=== PATIENT | male | born 1950 | race Caucasian/White ===

== ENCOUNTER 2021-10-26 07:10 | Day surgery (SDC) | payer MEDICARE ==
[~2021-10-26] VITALS: Ht 190.5 cm; Wt 147.0 kg
--- NOTE | ~2021-10-26 | OR ---
[facility] [address], [place] [address] Draft DATE OF OPERATION: 10/26/2021 SURGEON: Sandrita Ingram MD PREOPERATIVE DIAGNOSIS: Severe degenerative joint disease, right knee POSTOPERATIVE DIAGNOSIS: Severe degenerative joint disease, right knee. PROCEDURE PERFORMED: Right total knee arthroplasty with Magno. PARK MAINTAINER: Ellen Perdomo PA-C. Ellen was present and critical for all portions of procedure. ANESTHESIA: Spinal. BLOOD LOSS: 200 mL. IMPLANTS: [place] Triathlon size 7 with a 9 mm polyethylene and 35 mm patella. BRIEF HISTORY: Maryanne is a 71-year-old gentleman with progressive worsening of osteoarthritis. Risks and benefits of operative treatment were discussed with him after nonoperative treatment failed. He agreed to proceed. DESCRIPTION OF PROCEDURE: Once consent was obtained, he was taken to the operating room. After adequate anesthesia, he was placed on operating table. All downside pressure points well padded. The right leg was prepped and draped in a standard sterile fashion. No tourniquet was placed. The leg was approached through a standard midline incision anteriorly. This was carried through skin and subcutaneous tissue and subcutaneous flaps were developed mediolaterally. Mid vastus approach was undertaken and the arthrotomy was performed. The MCL was elevated with a sleeve around the posteromedial corner. The infrapatellar fat pad was excised and the anterior horns of menisci were transected as was the ACL. PATIENT NAME: MARYANNE MEJIA OPERATIVE REPORT DATE OF : 46 REPORT #: [id number] PHYSICIAN: SANDRITA INGRAM MD PCP: HEBER BRONSON MD REPORT IS CONFIDENTIAL AND NOT TO BE RELEASED WITHOUT AUTHORIZATION [facility] [address], [place] [address] Draft The knee was then flexed. The patella was mobilized laterally. Once we got there, we were able to place the checkpoints, the medial femoral condyle and proximal tibia. The computer rays placed the medial femoral condyle and in the tibia percutaneously. The leg was then registered with the computer as were the fine anatomic points of the knee. The Laya valgus testing was then undertaken and slight adjustments were made at the prosthesis alignment. Once an even balance was obtained the robot was brought in and the four straight cuts were made with care taken to protect the patellar tendon and MCL. The blade was then switched to the angle blade and the two angled cuts were made. The bony surfaces were removed along with any remaining osteophytes. The osteophytes in the posterior aspect of the femur removed and the trials were positioned. Knee was taken through range of motion, found to be quite stable and went from 0 to 130 degrees of flexion. The patella was cut sized and drilled for a 35 mm patella. The knee was flexed and the distal femur was then drilled. The proximal tibia was finished using the keel punch and the trials removed. His bone was fairly soft so we did elect to go with a hybrid prosthesis. The bone was pulse lavaged and packed with dry Ray-Shamika. Cement was mixed and reached proper consistency, it was placed on the tibia and tibial implant. The tibia was impacted into position until it was well seated and all excess cement was removed. The polyethylene was snapped into position. The femur was impacted. Knee was then extended and nicely loaded. The patella was then cemented and clamped. All excess cement was removed. The cement was allowed to harden, once hardened sufficiently clamp was removed. Knee was taken through range of motion, any remaining overflow was removed. The periarticular soft tissues were injected with 100 mL ropivacaine Toradol mixture. The On-Q pain pump was percutaneously placed into the adductor canal. We did irrigate with 3 L normal saline with an IrriSept soak in the middle. The arthrotomy was then closed using #2 Stratafix, subcutaneous tissue with #0 Stratafix, and skin with 3-0 Stratafix. The wound was then dressed with Steri-Strips and Aquacel 7 dressing. The wound was dressed with an ABD and Doni wrap. He was awakened, taken to the recovery room in satisfactory condition. All sponge, needle, and instrument counts were correct. Sandrita Ingram MD BA/MODL /[id number] Copies: PATIENT NAME: MARYANNE MEJIA OPERATIVE REPORT DATE OF : 46 REPORT #: [id number] PHYSICIAN: SANDRITA INGRAM MD PCP: HEBER BRONSON MD REPORT IS CONFIDENTIAL AND NOT TO BE RELEASED WITHOUT AUTHORIZATION [address] [address] Draft ~ PATIENT NAME: MARYANNE MEJIA OPERATIVE REPORT DATE OF : 46 REPORT #: [id number] PHYSICIAN: SANDRITA INGRAM MD PCP: HEBER BRONSON MD REPORT IS CONFIDENTIAL AND NOT TO BE RELEASED WITHOUT AUTHORIZATION
[~2021-10-26 07:10] MED LIST: MULTI VITAMIN1 EACH PO; NASAL DECONGEST30 M2 PO; NORVASC10 MG PO; VIT C-ROSE HIP500 MG PO
[2021-10-26] MEDS ORDERED: TAMSULOSIN HCL0.4 MG PO (10:55)
[2021-10-26] MEDS ORDERED: XARELTO10 MG PO (10:55)
[2021-10-26] MEDS ORDERED: OXYCODONE HCL5 MG PO (10:55)
[2021-10-26] MEDS ORDERED: ACETAMINOPHEN500 MG PO (10:55)
[2021-10-26] MEDS ORDERED: SENNA LAX8.6 MG PO (10:56)
== END 2021-10-26 15:25 | disposition home or self-care (01) ==
LOC: DS 07:10
PROVIDERS: ATTEND Specialist
PROC: 8E0YXBZ Computer Assisted Procedure of Lower Extremity (ICD-10-PCS; 2021-10-26)
PROC: 0SRC0J9 Replacement of Right Knee Joint with Synthetic Substitute, Cemented, Open Approach (ICD-10-PCS; principal; 2021-10-26 08:45)
DX: M17.11 Unilateral primary osteoarthritis, right knee (principal); G89.18 Other acute postprocedural pain; G47.30 Sleep apnea, unspecified; Z98.84 Bariatric surgery status; M43.06 Spondylolysis, lumbar region; I10 Essential (primary) hypertension; E11.9 Type 2 diabetes mellitus without complications
CPT/HCPCS: 01402; 64447; 64450; 76942; 97161; A9270; C1713; C1776; J0690; J1100; J1885; J2001; J2250; J2704; J2795; J7121

== ENCOUNTER 2021-11-06 15:04 | Emergency (ER) | payer MEDICARE ==
[~2021-11-06] VITALS: Ht 190.5 cm; Wt 145.2 kg
[~2021-11-06 15:04] MED LIST changes: +ACETAMINOPHEN500 MG PO; +OXYCODONE HCL5 MG PO; +SENNA LAX8.6 MG PO; +TAMSULOSIN HCL0.4 MG PO; +XARELTO10 MG PO
== END 2021-11-06 16:50 | disposition home or self-care (01) ==
LOC: ED 15:04
DX: M96.89 Other intraoperative and postprocedural complications and disorders of the musculoskeletal system (principal); M79.89 Other specified soft tissue disorders; E66.9 Obesity, unspecified; I10 Essential (primary) hypertension; Z79.899 Other long term (current) drug therapy
CPT/HCPCS: 93971; 99283-25

== ENCOUNTER 2023-04-25 05:35 | Day surgery (SDC) | payer MEDICARE | END 2023-04-25 15:10 | disposition home or self-care (01) | LOC: DS 05:35 | PROC: 0SRB01Z Replacement of Left Hip Joint with Metal Synthetic Substitute, Open Approach (ICD-10-PCS; principal; 2023-04-25) | PROC: 8E0YXBZ Computer Assisted Procedure of Lower Extremity (ICD-10-PCS; 2023-04-25) | DX: M16.12 Unilateral primary osteoarthritis, left hip (principal); I10 Essential (primary) hypertension; E11.9 Type 2 diabetes mellitus without complications ==

== ENCOUNTER 2023-10-13 18:30 | Emergency (ER) | payer MEDICARE, OTHER ==
[~2023-10-13] VITALS: Ht 190.5 cm; Wt 159.7 kg
[~2023-10-13 18:30] MED LIST changes: +CEFUROXIME250 MG PO; +CELECOXIB200 MG PO; +GABAPENTIN300 MG PO; +IRON325 M1 PO
--- OUTSIDE RECORDS SUMMARY | 2023-10-13 18:32 | XMS ---
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 Ana has no Care Guidelines for this patient. [facility]12 MO.) [facility] NOTE: Visits indicate total known visits. 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
[2023-10-13] MEDS ORDERED: CEPHALEXIN500 MG PO (19:48)
[2023-10-13 20:31] LABS: BASOPHILS 0.3 % (0-2); EOSINOPHILS 0.2 % (0-6); HEMATOCRIT 40.8 % (35.0-50.0); HEMOGLOBIN 14.1 g/dL (12.0-18.0); LYMPHOCYTES 9.8 % (24-44); MCH 30.8 (27-36); MCHC 34.5 g/dl (30-36); MCV 89.1 fl (81-99); MONOCYTES 8.8 % (0-12); NEUTROPHILS 80.9 % (39-80); PLATELET COUNT 161 K/uL (140-440); RBC 4.58 M/ul (4.3-5.7)
[2023-10-13 20:39] LABS: ALBUMIN 2.6 g/dL (3.4-5.0); ALBUMIN/GLOBULIN RATIO 0.68 (1.1-2.4); ANION GAP 13.2 (7-21); BILIRUBIN, TOTAL 1.5 ng/dL (0.2-1.0); BUN/CREATININE RATIO 16.84 (6.0-28.6); CALCIUM 8.7 mg/dL (8.5-10.1); CREATININE, SERUM 0.95 mg/dL (0.70-1.30); POTASSIUM 3.2 mmol/L (3.5-5.1); PROTEIN, TOTAL 6.4 g/dL (6.4-8.2)
[2023-10-13 20:50] LABS: BILIRUBIN, URINE POSITIVE (negative); BLOOD/HGB, URINE TRACE-I (Negative); KETONE, URINE TRACE (Negative); LEUK ESTERASE, URINE NEGATIVE (negative); NITRITE, URINE NEGATIVE (negative)
[2023-10-13 20:59] LABS: BACTERIA, URINE NONE SEEN /hpf (negative); CASTS, URINE NONE SEEN \\lpf; COLLECTION TYPE, URINE CLEAN CATCH; CRYSTALS, URINE NONE SEEN (0-1+); EPITHELIAL CELLS, URINE NONE SEEN /lpf (0-1+); RED BLOOD CELLS, URINE 0-1 /hpf (0-5); REFLEX CULTURE, URINE No (No); WHITE BLOOD CELLS, URINE 0-1 /HPF (0-5)
[2023-10-13] MEDS ORDERED: CIPRO500 MG PO (21:07)
[2023-10-13 21:20] VITALS: BP 141/64
== END 2023-10-13 21:20 | disposition home or self-care (01) ==
LOC: ED 18:30
PROVIDERS: Emergency Medicine
DX: N41.9 Inflammatory disease of prostate, unspecified (principal); I10 Essential (primary) hypertension; Z79.899 Other long term (current) drug therapy
CPT/HCPCS: 36415; 51798; 80053; 81001; 81003; 85025; 99284